=== PATIENT | male | born 1940 | race Caucasian/White ===

== ENCOUNTER → 2017-09-30 16:52 | Outpatient (REF) | payer MEDICARE, OTHER, SELFPAY ==
[2017-09-30 20:12] LABS: HCT 48.3 % (40.0-50.0); HGB 16.3 g/dL (13.5-17.5); Mean Corp. HGB Concentration 33.7 g/dL (32.0-36.0); Mean Corpuscular Hemoglobin 31.3 pg (27.0-33.0); Mean Corpuscular Volume 92.7 fL (80-95); Mean Platelet Volume 11.3 fL (8.0-11.0); Platelet Count 173 x1000/uL (130-400); RBC 5.21 m/cumm (4.50-6.00); RBC Distribution Width 13.6 % (11.8-14.1)
[2017-09-30 20:50] LABS: Anion Gap 9.6 mmol/L (3-11); BUN 20 mg/dL (7-18); CO2 26.4 mmol/L (21.0-32.0); CREATININE 1.09 mg/dL (0.70-1.30); Calcium 8.3 mg/dL (8.5-10.1); Chloride 106 mmol/L (98-107); Glucose 80 mg/dL (70-100); Potassium 4.2 mmol/L (3.5-5.1); Sodium 142 mmol/L (136-145); TSH 1.36 uIU/mL (0.358-3.74)
== END ==
LOC: NCHCN 16:52
PROVIDERS: PCP Physician Assistant; Visit Provider Physician Assistant Medical
DX: I10 Essential (primary) hypertension (principal); R53.83 Other fatigue
CPT/HCPCS: 80048; 85027; 84443

== ENCOUNTER 2017-12-25 13:50 | Outpatient (REF) | payer MEDICARE, OTHER, SELFPAY ==
[2017-12-25 20:49] LABS: HCT 48.2 % (40.0-50.0); HGB 16.7 g/dL (13.5-17.5); Mean Corp. HGB Concentration 34.6 g/dL (32.0-36.0); Mean Corpuscular Hemoglobin 31.8 pg (27.0-33.0); Mean Corpuscular Volume 91.8 fL (80-95); Mean Platelet Volume 11.2 fL (8.0-11.0); Platelet Count 184 x1000/uL (130-400); RBC 5.25 m/cumm (4.50-6.00); RBC Distribution Width 12.9 % (11.8-14.1); White Blood Cell Count 6.07 k/cumm (4.4-10.8)
[2017-12-25 21:05] LABS: ALT 24 U/L (12-78); AST 19 U/L (15-37); Albumin 3.7 g/dL (3.4-5.0); Alkaline Phosphatase 74 U/L (46-116); Anion Gap 7.6 mmol/L (3-11); BUN 21 mg/dL (7-18); Bilirubin, Total 1.6 mg/dL (0.2-1.0); CO2 27.4 mmol/L (21.0-32.0); CREATININE 0.82 mg/dL (0.70-1.30); Calcium 8.8 mg/dL (8.5-10.1); Chloride 104 mmol/L (98-107); Glucose 83 mg/dL (70-100); Potassium 4.3 mmol/L (3.5-5.1); Sodium 139 mmol/L (136-145); Total Protein 6.5 g/dL (6.4-8.2)
[2017-12-25 21:07] LABS: Bilirubin Negative (Negative); Blood Negative (Negative); Clarity Sl Cloudy; Glucose Negative (Negative); Ketones Trace mg/dL (Negative); Leukocyte Esterase Negative (Negative); Nitrite Negative (Negative); Specific Gravity >= 1.030 (1.005-1.025); Urobilinogen 0.2 EU/dL (Up TO 0.2); pH 5.5 (5-8)
[2017-12-25 21:12] LABS: INR 1.1 (1.0-3.5)
== END 2017-12-25 14:10 ==
LOC: NCHCN 13:50
PROVIDERS: PCP Physician Assistant; Visit Provider Physician Assistant Medical
DX: I10 Essential (primary) hypertension (principal); Z01.818 Encounter for other preprocedural examination
CPT/HCPCS: 80053; 85027; 81003; 85610

== ENCOUNTER 2018-01-03 10:31 | Outpatient (REF) | payer MEDICARE, OTHER, SELFPAY ==
[2018-01-03 19:03] LABS: Bilirubin, Direct 0.33 mg/dL (0.00-0.20)
== END 2018-01-03 10:51 ==
LOC: NCHCN 10:31
PROVIDERS: PCP Physician Assistant; Visit Provider Physician Assistant Medical
DX: E80.7 Disorder of bilirubin metabolism, unspecified (principal); I10 Essential (primary) hypertension
CPT/HCPCS: 82248

== ENCOUNTER 2019-11-23 14:55 | Outpatient (REF) | payer MEDICARE, OTHER, SELFPAY ==
[2019-11-23 20:06] LABS: Anion Gap 10.4 mmol/L (3-11); BUN 22 mg/dL (7-18); CO2 25.6 mmol/L (21.0-32.0); Calcium 8.7 mg/dL (8.5-10.1); Calculated LDL 110 mg/dL (<100); Chloride 106 mmol/L (98-107); Cholesterol 198 mg/dL (<200); Glucose 77 mg/dL (74-106); HDL Cholesterol 77 mg/dL (40-60); Potassium 4.4 mmol/L (3.5-5.1); Sodium 142 mmol/L (136-145); Triglyceride 56 mg/dL (<150)
== END 2019-11-23 15:15 ==
LOC: NCHCN 14:55
PROVIDERS: PCP Physician Assistant; Visit Provider Nurse Practitioner Family
DX: I10 Essential (primary) hypertension (principal)
CPT/HCPCS: 80048; 80061

== ENCOUNTER 2019-12-29 20:04 | Outpatient (REF) | payer MEDICARE, OTHER, SELFPAY ==
[2020-01-02 03:52] LABS: Patient Race White; SARS-CoV-2 RNA Undetected (Undetected); SARS-CoV-2 Specimen Source Nasal
== END 2019-12-29 20:24 ==
LOC: NCHCN 20:04
PROVIDERS: PCP Physician Assistant; Visit Provider Nurse Practitioner Family
DX: Z11.59 Encounter for screening for other viral diseases (principal)
CPT/HCPCS: U0003

== ENCOUNTER 2020-04-27 18:07 | Outpatient (REF) | payer MEDICARE, OTHER, SELFPAY ==
[2020-04-29 13:08] LABS: COVID-19 RT-PCR UVMMC Result Negative (Negative)
== END 2020-04-27 18:08 | disposition home or self-care (01) ==
LOC: NCHCN 18:07
PROVIDERS: PCP Physician Assistant; Visit Provider Physician Assistant
DX: Z20.822 Contact with and (suspected) exposure to COVID-19 (principal); R09.81 Nasal congestion
CPT/HCPCS: U0003

== ENCOUNTER 2021-04-25 13:33 | Outpatient (CLI) | payer MEDICARE, OTHER, SELFPAY ==
--- NOTE | 2021-04-25 13:00 | DI.RAD_ITS ---
Exam(s) XR SHOULDER RT COMPLETE 2+V EXAM: XR SHOULDER RT COMPLETE 2+V CLINICAL HISTORY: right shoulder pain. TECHNIQUE: 2D digital imaging was performed. Two views. COMPARISON: No exams were available for comparison FINDINGS: BONES: No acute fracture is present. No bony destructive lesion is seen. JOINTS: No dislocation present. Spurring at AC joint and tip of the acromion. Spurring and inferior glenoid. SOFT TISSUE: Normal. IMPRESSION: Czkc-hy-agvdsoac degenerative changes. DATA REPOSITORY: RADIATION DOSE DELIVERED:
--- OUTSIDE RECORDS SUMMARY | 2021-04-25 13:35 | XMS_ITS | Encounter Summary ---
:1940 Author Care Team Providers Name Role Phone Stoney Atkinson MD Primary Care Provider [phone] Edi Yusuf General Surgeon [phone] Jacek Barcenas MD Urologist [phone] Zachery Stafford MD Neurologist [phone] Reason for Visit hernia Self referral for right inguinal hernia Assessment and Plan Assessment Note 80-year-old man with a primary, red ucible umbilical hernia that is symptomatic and I recommend laparoscopic repair of this. Separately, he has a recurrent, symptomatic right groin hernia. I recomme nd a repeat repair but posteriorly via l aparoscopic approach. He is at very high risk for having a left?sided inguinal hernia as well. I will inspect the pelvis laparoscopically at the time of ac rgery and if there is one present I will fix that one as well. If 1 is not present, we will not fix it. I did discuss with the patient of the ve ry real possibility of chronic groin pain after surgery. This is especially risky because he is having groin pain already and he has already had surgery done once . What is good news is that after his fi rst surgery he had many years of no pain and was very happy. I quoted him that the risk for chronic groin pain after surgery is probably 1 or 2%. Since it is limiting his activity and hi s lifestyle, he agrees with all the potential risks but also with the indications and the goals of surgery and wishes to proceed. Plan: Laparoscopic umbilical as well as laparoscopic recurrent right inguinal hernia repair. 25 minutes spent on this consultation an d visit. 1. Pre-surgery testing ? unlisted lab - EKG done by lab Discussion Note: None recorded.Patient educational handouts: No information available. Plan of Care Reminders Provider Appointments Return to on or around [facility] Office 08/01/2021 [facility] Unlisted 02/07/2021 [facility] Lab (Internal) Referral None ? ? recorded. Procedures None ? ? recorded. Surgeries None ? ? recorded. Imaging None ? ? recorded. Medications Name Start Date ? ? Curcumin ? 3 capsules by mouth once a day cyclobenzaprine 10 mg tablet ? Take 1 tablet 3 times a day by oral route as needed. fexofenadine 180 mg tablet ? Take 1 tablet every day by oral route as needed. Fish Oil 1,000 mg (120 mg-180 mg) capsule ? Take 1 capsule every day by oral route. ibuprofen 200 mg tablet ? Take 2 tablets twice a day by oral route. lisinopril 10 mg tablet 01/20/2018 Take 1 tablet every day by oral route. phenazopyridine 95 mg tablet ? 2 tabs now red yeast rice 600 mg capsule ? Take 2 capsules every day by oral route. saw palmetto 500 mg capsule ? Take 1 capsule every day by oral route. Tylenol Extra Strength 500 mg tablet ? Take 1000 mg every day by oral route. Vitamin C 500 mg capsule,extended release ? Take 2 capsules every day by oral route. Notes: Prostate X 258mg QD Chaga (mushroom) 4 TBSP daily Medications Administered None recorded. Vitals Height Weight BMI Blood Pressure 5 ft 4.5 in 164 lbs 16 oz 27.9 kg/m2 138/82 mm[Hg] Results Lab Results None recorded. Allergies Code Code System Name Reaction Severity Onset Adhesive Tape Other Mild ? 84171 RxNorm Azithromycin Nausea ? ? Penicillins Nausea ? ? 101467 RxNorm Scallops ? ? ? Problems Name Status Onset Date Source ? 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 Hypertensive Disorder Active 07/31/2018 ? Posterior Rhinorrhea Active 07/31/2018 ? Disorder of Gallbladder Active 07/31/2018 ? Osteoarthritis of Knee Active 07/31/2018 ? Low Back Pain Active 07/31/2018 ? Jaundice Active 07/31/2018 ? Knee Pain Active 07/31/2018 ? Hearing Loss Active 11/03/2019 ? Polyp of Colon Active ? History Unilateral Inguinal Hernia Active ? Histo ry Diverticula of Intestine Active ? History Melena Active ? History Tremor Active ? History Pain of Left Shoulder Joint Active ? 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 History Procedures Date Name Performed by ? 04/20/2021 Colonoscopy Information not kiran strong Notes: severe left sided diverticulos is, grade 1 internal hemorrhoids 02/15/2021 Laparoscopic Ventral Hernia Repair Infor mation not available (Surg) 01/20/2018 Egd Information not avai lable Notes: diverticulosis of intesting, chronic duodenitis; 02/02/2014 slight schatzki ring, mild duodenitis 01/20/2018 Colonoscopy Information not avai lable Notes: diverticulosis of intestine, internal hemorrhoids; 02/02/2014 small ascending colon polyp, sigmoid diverticular disease; 04/05/2003 melanosis coli with sigmoid diverticular disease, no evidence of polyps 10/07/2015 Hernia Repair Information not avai lable Notes: right 02/11/2011 Wrist Surgery Information not avai lable Notes: RIGHT WRIST FUSION--HAS DANIELLA RE 02/11/2010 Carpal Tunnel Surgery Information not av ailable Notes: right 02/11/2009 Ankle Surgery Information not avai lable Notes: RIGHT ankle fusion--has daniella re 07/21/2008 Cystourethroscopy Rigid Information not available Notes: refractory right mid ureteral calculus ? Arthroplasty of Knee Information not seble ilable Notes: pt has had two left TKA Notes: Right ankle fusion right wrist fusion five previously fractured vetebrae Vaccine List Vaccine Type COVID-19, mRNA, LNP-S, PF, 30 mcg/0.3 mL dose (Valopaa) 03/18/2020 04/06/2020 02/02/2021 Notes: Influenza vaccine Social History Tobacco Smoking Status Never Smoker Any signs of neglect or no signs of neglect or abuse abuse? noted How many children do you 2 have? Marital status Have you used IV drugs? N What is your code status? 0 Suspected/Known Abuse Or No Neglect? How much tobacco do you chew? none What was the date of your 08/06/2018 most recent tobacco screening? Do you have an advanced N directive? Do you feel safe at home? Y Is blood transfusion Y acceptable in an emergency? Do you use any illicit or N recreational drugs? Former Occupation construction, heavy equipment operation, business population health manager Which of your hands is Right dominant? What is your level of alcohol Occasional consumption? Did the fall result in an Y Notes: prev ious injuried injury? unable answer at thi s time Screened for Covid-19 Y Notes: pt repor ts using mask in public at al l times, denies sx of illness (09/30/19) Do you or have you ever used N any other forms of tobacco or nicotine? What is your level of None caffeine consumption? 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 ladder, reports conc ussion Family History Relation Problem Onset Age of Age Notes Unspecified Relation Malignant tumor of (No N/A ( No Notes) colon Information) Functional Status Unknown. Past Encounters 02/07/2021 Pre-surgery Testing Edi Yusuf MD: [address] [place] [address], Ph. History of Present Illness Note: <div>80-year-old man had a Right inguinal hernia repair done 5 years ago.</div><div>
</div><div>Prior to that hernia repair he was having significant groin pain. The hernia repair fix that groin pain and he did well for many years afterwards. Unfortunately, the pain has come back in the last few months. He feels like his hernia is back just like it was 5 years ago.</div><div>
</div><div>He also has a bellybutton hernia thathas been bothering him for a number of years. It is getting worse and also starting to hurt.</div><div>
</div><div>He denies left?sided groin pain or bulging.< /div>Review of Systems: ROS as noted in the HPI Review of Systems None recorded. Physical Exam ? Notes: <div>General: Nontoxic and c omfortable

Neuro: Alert and oriented x3

Psych: Appropri ate mood and affect, good insight and understanding into condition

Abdomen: Soft, nontender nondistended. He has a soft and reducible umbilical hernia. His bilateral groins are examined. The right side is tender at the level of the external ring. There is no significant bulge. The le ft side is not tender.</div>
--- OUTSIDE RECORDS SUMMARY | 2021-04-25 13:35 | XMS_ITS ---
:1940 Author Care Team Providers Name Role Phone ORLANDO SOMERS General Surgeon [phone] JANET ARENAS MD Primary Care Provider [phone] JIMI BARCENAS MD Urologist [phone] EVANGELISTA BARAJAS MD Neurologist [phone] Allergies Code Code System Name Reaction Severity Status Onset Adhesive Tape Other Mild Active ? 19136 RxNorm Azithromycin Nausea ? Active ? Penicillins Nausea ? Active ? 446207 RxNorm Scallops ? ? Active ? Medications Name Status Start Date Stop Date ? ? Bactrim DS 800 mg-160 mg tablet Completed ? 01/20/2018 Take 1 tablet every 12 hours by oral route for 7 days. ciprofloxacin 250 mg tablet Completed ? 01/12 2 tabs now Curcumin Active ? Not available 3 capsules by mouth once a day cyclobenzaprine 10 mg tablet Active ? Not available Take 1 tablet 3 times a day by oral route as needed. Dilaudid 2 mg tablet Completed ? 03/07/2021 Take 1 tablet every 4-6 hours by oral route as needed for 2 day s. docusate sodium 100 mg capsule Completed 01/20/2018 0 08/06/2018 Take 1 capsule twice a day by oral route. Eliquis 2.5 mg tablet Completed 01/20/2018 07/31/2018 Take 1 tablet every 12 hours by oral route for 14 days. fexofenadine 180 mg tablet Active ? Not a vailable Take 1 tablet every day by oral route as needed. Fish Oil 1,000 mg (120 mg-180 mg) capsule Active ? Not available Take 1 capsule every day by oral route. Flagyl 500 mg tablet Completed ? 01/20/2018 Take 1 tablet every 8 hours by oral route for 7 days. fluticasone propionate 50 mcg/actuation nasal spray,suspension C ompleted ? 08/06/2018 [place] 2 sprays every day by intranasal route. glycerin (adult) rectal suppository Completed ? 01/20/2018 Insert 1 suppository every day by rectal route for 3 days. ibuprofen 200 mg tablet Active ? Not avai lable Take 2 tablets twice a day by oral route. lisinopril 10 mg tablet Active 01/20/2018 Not avai lable Take 1 tablet every day by oral route. omeprazole 40 mg capsule,delayed release Completed 018 08/06/2018 Take 1 capsule every day by oral route. phenazopyridine 95 mg tablet Active ? Not available 2 tabs now prednisone 10 mg tablet Completed ? 11/04/19 Take 6 tablets every day by oral route for 3 days. Take 6 tabs daily for 3 days, then 5 ti mes daily for 3 days and 4 times daily for 3 days then 3 tabs daily for 3 days then 2 tabs daily for 3 days then 1 tab daily for 3 days. red yeast rice 600 mg capsule Active ? No t available Take 2 capsules every day by oral route. saw palmetto 500 mg capsule Active ? Not available Take 1 capsule every day by oral route. Tylenol Extra Strength 500 mg tablet Active ? Not available Take 1000 mg every day by oral route. Vitamin C 500 mg capsule,extended release Active ? Not available Take 2 capsules every day by oral route. Notes: Prostate X 258mg QD Chaga (mushroom) 4 TBSP daily Problems Name Status Onset Date Source ? [...] Active ? History Melena Active ? History Pain in Limb Unknown ? History Tremor Active ? History Pain of Left Shoulder Joint Active ? 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 History Procedure by Method Unknown ? History Procedures Date Name Performed by ? 04/20/2021 Colonoscopy Information not avai lable Notes: severe left sided diverticulos is, grade [...] not avai lable Notes: RIGHT WRIST FUSION--HAS HARDWA RE 02/11/2010 Carpal Tunnel Surgery Information not av ailable Notes: right 02/11/2009 Ankle Surgery Information not avai lable Notes: RIGHT ankle fusion--has hardwa re 07/21/2008 Cystourethroscopy Rigid Information not available Notes: refractory right mid ureteral calculus ? Arthroplasty of Knee Information not seble ilable Notes: pt has had two left TKA 02/10/2019 US, Abdomen, Limited [facility] (Internal) [address] [place] [address] (Work Place) 07/14/2019 US, Abdomen, Limited [facility] (Internal) [address] [place] [address] (Work Place) 09/30/2019 CT, Abdomen + Pelvis, W/o Contrast [facility] Radiology (Internal) [address] [place] [address] (Work Place) 06/13/2020 US, Abdomen, Limited [facility] (Internal) [address] [place] [address] (Work Place) Notes: Right ankle fusion right wrist fusion five previously fractured vetebrae Results Lab Results Date Name Specimen Result Interpretation Description Value Range Status Address ? 02/15/2021 Pathology Study TISS ? Report (see below) ? Final [facility] L ab (Internal) : [address] 11/04/2019 Cytology, TISS ? Report (see below) ? Ashley Aguayo Non-gynecologic C ountry al, Unspecified H ospital Lab Specimen (Interna l): [address] 11/04/2019 Urinalysis, Urine ? Color Carol ? ? P _urology: Dipstick, clean [address], [place] ? ? Urine ? Appearance Clear ? ? P_uro logy: clean [address] [facility] [address], [place] ? ? Urine ? Glucose Normal ? ? P_urolog y: clean [address] [facility] [address], [place] ? ? Urine ? Bilirubin Negative ? ? P_ur ology: clean [address] [facility] [address], [place] ? ? Urine ? Ketones Negative ? ? P_urol ogy: clean [address], [place] ? ? Urine ? Specific 1.030 ? ? P_urolo gy: clean Allen [address] [facility] [address], [place] ? ? Urine ? Blood Negative ? ? P_urolog y: clean [address] [facility] [address], [place] ? ? Urine ? Ph 5.5 ? ? P_urology: clean 41 Medical [employer] [facility], [place] ? ? Urine ? Protein Negative ? ? P_urol ogy: clean 41 Medical [employer] [facility], [place] ? ? Urine ? Urobilinog 0.2 ? ? P_uro logy: clean en [address] Medical [employer] [facility], [place] ? ? Urine ? Nitrite negative ? ? P_urol ogy: clean 41 Medical [employer] [facility], [place] ? ? Urine ? Leukocyte Negative ? ? P_ur ology: clean Esterase 41 Medic al [employer] [facility] 09/[facility]/2019 Bladder Scan ? Date and 09/30/2019 ? ? P_urology: (PROC) Time 8:25am [address] [facility] ? ? ? Amount in 32ml ? ? P_urol ogy: Bladder 41 [facility] [facility] 09/30/2019 Urinalysis, Urine ? Color Yellow ? ? P _urology: Dipstick, clean [address] Medi falguni Reflex Micro catch [address], [place] ? ? Urine ? Appearance Clear ? ? P_uro logy: clean 41 [address] catch [facility], [place] ? ? Urine ? Glucose Normal ? ? P_urolog y: clean [address] [facility], [place] ? ? Urine ? Bilirubin Negative ? ? P_ur ology: clean 41 Medical [employer] [facility], [place] ? ? Urine ? Ketones Negative ? ? P_urol ogy: clean 41 Medical [employer] [facility], [place] ? ? Urine ? Specific 1.030 ? ? P_urolo gy: clean Allen [address], [place] ? ? Urine ? Blood Trace ? ? P_urology: clean [address], [place] ? ? Urine ? Ph 6.0 ? ? P_urology: clean [address], [place] ? ? Urine ? Protein Negative ? ? P_urol ogy: clean [address], [place] ? ? Urine ? Urobilinog 0.2 ? ? P_uro logy: clean en [address], [place] ? ? Urine ? Nitrite negative ? ? P_urol ogy: clean [address], [place] ? ? Urine ? Leukocyte Negative ? ? P_ur ology: clean Esterase 41 Medic al [email or web address] 11/10/2018 Borrelia S - Lyme negative ? Final No rth [place]dorferi Ab, Antibody [facility] Immunoassay, (Int ernal): Serum [address] 11/10/2018 TSH, Serum or S - Tsh 1.62 0.47-4 [facility] Plasma u[IU]/mL .68 [facility] u[IU]/ Hospital L ab mL (Internal) : [address] 11/10/2018 Glucose, S - Fbs 92 mg/dL 74-106 Final No rth Fasting, mg/dL Country Serum/plasma Hosp ital Lab (Internal) : [address] 11/10/2018 CBC W/ Auto BLD - Wbc 5.7 10*3/uL 5.0-10 Fin al [place] Diff .0 [facility] 10*3/u Hospital L ab L (Internal) : [address] ? ? BLD - Rbc 5.63 4.60-6 [facility] 10*6/uL .00 [facility] 10*6/u Hospital L ab L (Internal) : [address] ? ? BLD - Hgb 17.6 g/dL 14.0-1 Final [place] 8.0 [facility] g/dL Hospital L ab (Internal) : [address] ? ? BLD High Hct 53.0 % 41.0-5 Final [place] 1.0 % [facility] L [facility] (Internal) : [address] ? ? BLD - Mcv 94.1 fL 80.0-9 Final [facility] 6.0 fL [facility] L [facility] (Internal) : [address] ? ? BLD - Mch 31.3 pg 26.0-3 Final [facility] 2.0 pg [facility] L [facility] (Internal) : [address] ? ? BLD - Mchc 33.2 g/dL 31.0-3 Final [place] 5.0 [facility] g/dL Hospital L ab (Internal) : [address] ? ? BLD - Rdw 12.7 % 11.5-1 Final [facility] 4.5 % [facility] L [facility] (Internal) : [address] ? ? BLD - Plt 195 10*3/uL 130-45 Final [place] 0 [facility] 10*3/u Hospital L ab L (Internal) : [address] ? ? BLD - Anc 3.74 ? Final [facility] 10*3/uL [facility] (Internal) : [address] ? ? BLD - Neutro 65.3 % 40.0-7 Final [facility] 5.0 % [facility] (Internal) : [address] ? ? BLD Low Lymph 19.7 % 20.0-5 Final [facility] 0.0 % [facility] (Internal) : [address] ? ? BLD - [place] 9.8 % 2.0-10 Final [facility] .0 % [facility] (Internal[facility] : [address] ? ? BLD - Eos 4.0 % 1.0-6. Final [place] 0 % [facility] (Internal) : [address] ? ? BLD - Baso 0.9 % 0.0-1. Final [facility] 0 % [facility] (Internal) : [address] ? ? BLD - Ig 0.3 % 0.0-0. Final [facility] 9 % [facility] (Internal) : [address] 11/10/2018 ALT (Alanine S - Alt (Sgpt) 21 U/L 21-72 Fi nal [place] Aminotransferas U/L C ountry e), Serum or Hosp ital Lab Plasma (Internal) : [address] 11/10/2018 AST/SGOT S - Ast (Sgot) 28 U/L 17-59 Final [place] (Aspartate U/L Countr y Aminotransferas H ospital Lab e), Serum or (Int ernal): Plasma [address] 11/10/2018 Lipid Panel, S High Chol 225 mg/dL 50-200 Ashley l [facility] Serum mg/dL [facility] L [facility] (Internal) : [address] ? ? S - Trig 43 mg/dL 10-150 Final [place] mg/dL [facility] Hospital L ab (Internal) : [address] ? ? S High Hdl 68 mg/dL 40-60 Final [place] mg/dL [facility] Hospital L ab (Internal) : [address] ? ? S High Ldl 148 mg/dL 0-130 Final [place] mg/dL [facility] Hospital L ab (Internal) : [address] 10/06/2018 PSA, Serum or S - PSA, Total 1.4 NG/mL 0.0-4 . Final [place] Plasma 0 [facility] NG/mL Hospital L ab (Internal) : [address] 01/27/2018 CBC W/ Auto BLD - Wbc 9.6 10*3/uL 5.0-10 Fin al [place] Diff .0 [facility] 10*3/u Hospital L ab L (Internal) : [address] ? ? BLD Low Rbc 4.44 4.60-6 Final [place] 10*6/uL .00 [facility] 10*6/u Hospital L ab L (Internal) : [address] ? ? BLD Low Hgb 13.9 g/dL 14.0-1 Final [place] 8.0 [facility] g/dL Hospital L ab (Internal) : [address] ? ? BLD - Hct 41.6 % 41.0-5 Final [place] 1.0 % [facility] L [facility] (Internal) : [address] ? ? BLD - Mcv 93.7 fL 80.0-9 Final [place] 6.0 fL [facility] (Internal) : [address] ? ? BLD - Mch 31.3 pg 26.0-3 Final [facility] 2.0 pg [facility] L [facility] (Internal) : [address] ? ? BLD - Mchc 33.4 g/dL 31.0-3 Final North 5.0 [facility] g/dL Hospital L ab (Internal) : [address] ? ? BLD - Rdw 12.5 % 11.5-1 Final [facility] 4.5 % [facility] L [facility] (Internal) : [address] ? ? BLD - Plt 446 10*3/uL 130-45 Final [place] 0 [facility] 10*3/u Hospital L ab L (Internal) : [address] ? ? BLD - Anc 6.92 ? Final [facility] 10*3/uL [facility] L [facility] (Internal) : [address] ? ? BLD - Neutro 72.4 % 40.0-7 Final [facility] 5.0 % [facility] (Internal) : [address] ? ? BLD Low Lymph 15.4 % 20.0-5 Final [place] 0.0 % [facility] (Internal) : [address] ? ? BLD - [place] 9.8 % 2.0-10 Final North .0 % [facility] (Internal) : [address] ? ? BLD - Eos 1.5 % 1.0-6. Final [place] 0 % [facility] (Internal) : [address] ? ? BLD - Baso 0.5 % 0.0-1. Final [place] 0 % [facility] (Internal) : [address] ? ? BLD - Ig 0.4 % 0.0-0. Final [facility] 9 % [facility] (Internal) : [address] 01/20/2018 Cbc BLD - Wbc 6.3 10*3/uL 5.0-10 Final N orth .0 [facility] 10*3/u Hospital L ab L (Internal) : [address] ? ? BLD Low Rbc 4.11 4.60-6 Final North 10*6/uL .00 [facility] 10*6/u Hospital L ab L (Internal) : [address] ? ? BLD Low Hgb 12.9 g/dL 14.0-1 Final North 8.0 [facility] g/dL Hospital L ab (Internal) : [address] ? ? BLD Low Hct 38.2 % 41.0-5 Final [facility] 1.0 % [facility] (Internal) : [address] nadine ? ? BLD - Mcv 92.9 fL 80.0-9 Final [facility] 6.0 fL [facility] (Internal) : [address] nadine ? ? BLD - Mch 31.4 pg 26.0-3 Final [facility] 2.0 pg [facility] L [facility] (Internal) : [address] ? ? BLD - Mchc 33.8 g/dL 31.0-3 Final North 5.0 [facility] g/dL Hospital L ab (Internal) : [address] nadine ? ? BLD - Rdw 12.5 % 11.5-1 Final [place] 4.5 % [facility] L [facility] (Internal) : [address] ? ? BLD - Plt 223 10*3/uL 130-45 Final North 0 [facility] 10*3/u Hospital L ab L (Internal) : [address] nadine ? ? BLD - Anc 4.06 ? Final North 10*3/uL [facility] (Internal) : [address] 01/20/2018 BMP, Serum or S - g/r 98 mg/dL 74-106 Ashley l [facility] Plasma mg/dL [facility] (Internal) : [address] ? ? S - Bun 18 mg/dL 9-20 Final [facility] mg/dL [facility] (Internal) : [address] ? ? S - Crea 0.90 mg/dL 0.66-1 Final North .25 [facility] mg/dL Hospital L ab (Internal) : [address] ? ? S - Ca 8.4 mg/dL 8.4-10 Final North .2 [facility] mg/dL Hospital L ab (Internal) : [address] ? ? S Low Na 131 mmol/L 137-14 Final [place] 5 [facility] mmol/L Hospital L ab (Internal) : [address] ? ? S - K 4.4 mmol/L 3.5-5. Final [place] 1 [facility] mmol/L Hospital L ab (Internal) : [address] ? ? S - Cl 101 mmol/L 98-107 Final [place] mmol/L [facility] L [facility] (Internal) : [address] ? ? S - Tco2 27.0 mmol/L 22.0-3 Final [place] 0.0 [facility] mmol/L Hospital L ab (Internal) : [address] 01/20/2018 Urease, TISS - Final microbiolog ? Final [place] Qualitative, [facility] : [address] 01/20/2018 Pathology Study TISS - Report results ? Fi nal [facility] below [facility] L [facility] (Internal) : [address] 01/19/2018 Cbc BLD - Wbc 6.8 10*3/uL 5.0-10 Final N orth .0 [facility] 10*3/u Hospital L ab L (Internal) : [address] ? ? BLD Low Rbc 3.97 4.60-6 Final [place] 10*6/uL .00 [facility] 10*6/u Hospital L ab L (Internal) : [address] ? ? BLD Low Hgb 12.5 g/dL 14.0-1 Final [place] 8.0 [facility] g/dL Hospital L ab (Internal) : [address] ? ? BLD Low Hct 37.6 % 41.0-5 Final [place] 1.0 % [facility] L [facility] (Internal) : [address] ? ? BLD - Mcv 94.7 fL 80.0-9 Final [place] 6.0 fL [facility] (Internal) : [address] ? ? BLD - Mch 31.5 pg 26.0-3 Final [place] 2.0 pg [facility] L [facility] (Internal) : [address] ? ? BLD - Mchc 33.2 g/dL 31.0-3 Final [place] 5.0 [facility] g/dL Hospital L ab (Internal) : [address] ? ? BLD - Rdw 12.5 % 11.5-1 Final North 4.5 % [facility] L [facility] (Internal) : [address] ? ? BLD - Plt 206 10*3/uL 130-45 Final North 0 [facility] 10*3/u Hospital L ab L (Internal) : [address] ? ? BLD - Anc 4.61 ? Final North 10*3/uL [facility] (Internal) : [address] 01/19/2018 BMP, Serum or S - g/r 104 mg/dL 74-106 Fin al North Plasma mg/dL [facility] (Internal) : [address] ? ? S - Bun 16 mg/dL 9-20 Final [facility] mg/dL [facility] (Internal) : [address] ? ? S - Crea 1.00 mg/dL 0.66-1 Final North .25 [facility] mg/dL Hospital L ab (Internal) : [address] ? ? S - Ca 9.0 mg/dL 8.4-10 Final North .2 [facility] mg/dL Hospital L ab (Internal) : [address] ? ? S Low Na 134 mmol/L 137-14 Final [place] 5 [facility] mmol/L Hospital L ab (Internal) : [address] ? ? S - K 4.3 mmol/L 3.5-5. Final [place] 1 [facility] mmol/L Hospital L ab (Internal) : [address] ? ? S - Cl 98 mmol/L 98-107 Final [place] mmol/L [facility] (Internal) : [address] ? ? S - Tco2 28.0 mmol/L 22.0-3 Final North 0.0 [facility] mmol/L Hospital L ab (Internal) : [address] 01/19/2018 Cbc BLD - Wbc 7.4 10*3/uL 5.0-10 Final N orth .0 [facility] 10*3/u Hospital L ab L (Internal) : [address] ? ? BLD Low Rbc 4.56 4.60-6 Final North 10*6/uL .00 [facility] 10*6/u Hospital L ab L (Internal) : [address] ? ? BLD - Hgb 14.2 g/dL 14.0-1 Final North 8.0 [facility] g/dL Hospital L ab (Internal) : [address] ? ? BLD - Hct 43.4 % 41.0-5 Final North 1.0 % [facility] (Internal) : [address] ? ? BLD - Mcv 95.2 fL 80.0-9 Final [facility] 6.0 fL [facility] (Internal) : [address] ? ? BLD - Mch 31.1 pg 26.0-3 Final [facility] 2.0 pg [facility] (Internal) : [address] ? ? BLD - Mchc 32.7 g/dL 31.0-3 Final [place] 5.0 [facility] g/dL Hospital L ab (Internal) : [address] ? ? BLD - Rdw 12.8 % 11.5-1 Final [place] 4.5 % [facility] L [facility] (Internal) : [address] ? ? BLD - Plt 253 10*3/uL 130-45 Final North 0 [facility] 10*3/u Hospital L ab L (Internal) : [address] ? ? BLD - Anc 5.28 ? Final [place] 10*3/uL [facility] (Internal) : [address] 01/18/2018 CBC W/ Auto BLD - Wbc 7.2 10*3/uL 5.0-10 Fin al [place] Diff .0 [facility] 10*3/u Hospital L ab L (Internal) : [address] ? ? BLD Low Rbc 4.21 4.60-6 Final North 10*6/uL .00 [facility] 10*6/u Hospital L ab L (Internal) : [address] ? ? BLD Low Hgb 13.3 g/dL 14.0-1 Final [place] 8.0 Country g/dL Hospital L ab (Internal) : [address] ? ? BLD Low Hct 39.6 % 41.0-5 Final North 1.0 % [facility] L [facility] (Internal) : [address] ? ? BLD - Mcv 94.1 fL 80.0-9 Final [facility] 6.0 fL [facility] L [facility] (Internal) : [address] ? ? BLD - Mch 31.6 pg 26.0-3 Final North 2.0 pg [facility] L [facility] (Internal) : [address] ? ? BLD - Mchc 33.6 g/dL 31.0-3 Final North 5.0 Country g/dL Hospital L ab (Internal) : [address] ? ? BLD - Rdw 12.8 % 11.5-1 Final [facility] 4.5 % [facility] L [facility] (Internal) : [address] ? ? BLD - Plt 194 10*3/uL 130-45 Final North 0 [facility] 10*3/u Hospital L ab L (Internal) : [address] ? ? BLD - Anc 5.47 ? Final [facility] 10*3/uL [facility] L [facility] (Internal) : [address] ? ? BLD High Neutro 75.6 % 40.0-7 Final [facility] 5.0 % [facility] (Internal) : [address] ? ? BLD Low Lymph 13.0 % 20.0-5 Final [facility] 0.0 % [facility] (Internal) : [address] ? ? BLD - [place] 9.9 % 2.0-10 Final North .0 % [facility] L [facility] (Internal) : [address] ? ? BLD Low Eos 0.8 % 1.0-6. Final North 0 % [facility] (Internal) : [address] ? ? BLD - Baso 0.4 % 0.0-1. Final North 0 % [facility] (Internal) : [address] ? ? BLD - Ig 0.3 % 0.0-0. Final [facility] 9 % [facility] (Internal) : [address] 01/18/2018 CMP, Serum or S High g/r 117 mg/dL 74-106 Fin al [facility] Plasma mg/dL [facility] (Internal) : [address] ? ? S - Bun 16 mg/dL 9-20 Final [facility] mg/dL [facility] (Internal) : [address] ? ? S - Crea 1.00 mg/dL 0.66-1 Final North .25 [facility] mg/dL Hospital L ab (Internal) : [address] ? ? S - Ca 8.5 mg/dL 8.4-10 Final North .2 [facility] mg/dL Hospital L ab (Internal) : [address] ? ? S Low Na 133 mmol/L 137-14 Final North 5 [facility] mmol/L Hospital L ab (Internal) : [address] ? ? S - K 4.1 mmol/L 3.5-5. Final [place] 1 [facility] mmol/L Hospital L ab (Internal) : [address] ? ? S - Cl 101 mmol/L 98-107 Final [place] mmol/L [facility] Hospital L ab (Internal) : [address] ? ? S - Tco2 27.0 mmol/L 22.0-3 Final [place] 0.0 [facility] mmol/L Hospital L ab (Internal) : [address] ? ? S Low Tp 6.2 g/dL 6.3-8. Final North 2 g/dL [facility] (Internal) : [address] ? ? S Low Alb 3.4 g/dL 3.5-5. Final North 0 g/dL [facility] Hospital L ab (Internal) : [address] ? ? S High Tbil 1.9 mg/dL 0.2-1. Final North 3 [facility] mg/dL Hospital L ab (Internal) : [address] ? ? S - Alp 53 U/L 38-126 Final North U/L [facility] Hospital L ab (Internal) : [address] ? ? S - Alt (Sgpt) 26 U/L 21-72 Final [place] U/L [facility] Hospital L ab (Internal) : [address] ? ? S - Ast (Sgot) 31 U/L 17-59 Final North U/L [facility] Hospital L ab (Internal) : [address] 01/18/2018 Lipase, Serum S - Lip 72 U/L 23-300 Final [place] or Plasma U/L [facility] Hospital L ab (Internal) : [address] 01/18/2018 Partial BLD - APTT (Op) 25 s 22-35 Final N orth Thromboplastin s Co untry Time Hospital L ab (Internal) : [address] 01/18/2018 Prothrombin BLD - Pt 10.6 S 9.1-11 Final N orth Time .7 S [facility] Hospital L ab (Internal) : [address] ? ? BLD - Inr 1.0 ? Final [facility] Hospital L ab (Internal) : [address] 01/18/2018 Cbc BLD - Wbc 6.9 10*3/uL 5.0-10 Final N orth .0 [facility] 10*3/u Hospital L ab L (Internal) : [address] ? ? BLD Low Rbc 4.07 4.60-6 Final [place] 10*6/uL .00 [facility] 10*6/u Hospital L ab L (Internal) : [address] ? ? BLD Low Hgb 12.8 g/dL 14.0-1 Final [place] 8.0 Country g/dL Hospital L ab (Internal) : [address] ? ? BLD Low Hct 38.4 % 41.0-5 Final [place] 1.0 % [facility] Hospital L ab (Internal) : [address] ? ? BLD - Mcv 94.3 fL 80.0-9 Final [place] 6.0 fL [facility] Hospital L ab (Internal) : [address] ? ? BLD - Mch 31.4 pg 26.0-3 Final [place] 2.0 pg [facility] Hospital L ab (Internal) : [address] nadine ? ? BLD - Mchc 33.3 g/dL 31.0-3 Final [place] 5.0 Country g/dL Hospital L ab (Internal) : [address] nadine ? ? BLD - Rdw 12.8 % 11.5-1 Final [place] 4.5 % [facility] Hospital L [facility] (Internal) : [address] ? ? BLD - Plt 200 10*3/uL 130-45 Final [place] 0 [facility] 10*3/u Hospital L ab L (Internal) : [address] ? ? BLD - Anc 4.73 ? Final [place] 10*3/uL [facility] L [facility] (Internal) : [address] 01/18/2018 Cbc BLD - Wbc 6.9 10*3/uL 5.0-10 Final N orth .0 [facility] 10*3/u Hospital L ab L (Internal) : [address] ? ? BLD Low Rbc 3.99 4.60-6 Final [place] 10*6/uL .00 [facility] 10*6/u Hospital L ab L (Internal) : [address] ? ? BLD Low Hgb 12.5 g/dL 14.0-1 Final North 8.0 Country g/dL Hospital L ab (Internal) : [address] ? ? BLD Low Hct 38.1 % 41.0-5 Final North 1.0 % [facility] L [facility] (Internal) : [address] ? ? BLD - Mcv 95.5 fL 80.0-9 Final North 6.0 fL [facility] (Internal) : [address] ? ? BLD - Mch 31.3 pg 26.0-3 Final North 2.0 pg [facility] L [facility] (Internal) : [address] ? ? BLD - Mchc 32.8 g/dL 31.0-3 Final North 5.0 Country g/dL Hospital L ab (Internal) : [address] ? ? BLD - Rdw 12.7 % 11.5-1 Final [facility] 4.5 % [facility] Hospital L ab (Internal) : [address] ? ? BLD - Plt 195 10*3/uL 130-45 Final [place] 0 [facility] 10*3/u Hospital L ab L (Internal) : [address] ? ? BLD - Anc 4.72 ? Final North 10*3/uL [facility] Hospital L ab (Internal) : [address] [facility] 10/02/2017 PSA, Serum or S - PSA Scrn 1.2 NG/mL 0.0-4. Final [place] Plasma 0 Country NG/mL Hospital L ab (Internal) : [address] [facility] 11/20/2016 Influenza (A+B) NASAL ? Final microbiolog ? Final [place] Ag, Qual, y results Coun try Rapid, Nose Hospi sophia Lab (Internal) : [address] [facility] 08/30/2016 Venipuncture BLD ? Venpn* ? ? Final [facility] Hospital L ab (Internal) : [address] [facility] 08/30/2016 PSA, Serum or S ? PSA Scrn 1.1 NG/mL 0.0-4. Final [place] Plasma 0 Country NG/mL Hospital L ab (Internal) : [address] [facility] 05/28/2016 Urinalysis, UR ? UA-WBC 0-3 [hpf] 0-3 Ashley walker [place] Microscopic [hpf] Count Hospital L ab (Internal) : [address] t ? ? UR ABNORM UA-RBC 10-25 [hpf] 0-2 Final Nort h AL [hpf] [facility] Hospital L ab (Internal) : [address] t ? ? UR ? UA-bacteri rare [hpf] none Final N orth a seen Country [hpf] Hospital L ab (Internal) : [address] t ? ? UR ? UA-epithel none seen none Final No rth ial [hpf] seen Country [hpf] Hospital L ab (Internal) : [address] t ? ? UR ABNORM UA-mucus rare [hpf] none Final Nor th AL seen Country [hpf] Hospital L ab (Internal) : [address] [facility]2016 Urinalysis, UR ? UA-color yellow pale Final [place] Dipstick, yellow Country Reflex Micro Hosp ital Lab (Internal) : [address] t ? ? UR ? UA-appear clear clear Final [facility] L ab (Internal) : [address] t ? ? UR ? UA-spec 1.010 1.003- Final [place] Grav 1.035 [facility] L ab (Internal) : [address] t ? ? UR ? UA-pH 6.0 [pH] 4.6-8. Final [place] 0 [pH] [facility] Hospital L ab (Internal) : [address] t ? ? UR ? UA-leuk negative negati Final [facility] L ab (Internal) : [address] t ? ? UR ? UA-nitrite negative negati Final [facility] L ab (Internal) : [address] t ? ? UR ? UA-prot negative negati Final [facility] L ab (Internal) : [address] t ? ? UR ? UA-gluc negative negati Final [facility] L ab (Internal) : [address] t ? ? UR ? UA-ketone negative negati Final [facility] Hospital L ab (Internal) : [address] t ? ? UR ? UA-urobil normal normal Final [facility] L ab (Internal) : [address] t ? ? UR ? UA-bili negative negati Final [facility] L ab (Internal) : [address] t ? ? UR ABNORM UA-blood moderate negati Final [facility] Hospital L ab (Internal) : [address] 05/28/2016 CMP, Serum or S ? g/r 104 mg/dL 74-106 Fin [facility] Plasma mg/dL [facility] Hospital L ab (Internal) : [address] t ? ? S High Bun 23 mg/dL 9-20 Final [place] mg/dL [facility] Hospital L ab (Internal) : [address] t ? ? S ? Crea 1.00 mg/dL 0.66-1 Final [place] .25 Country mg/dL Hospital L ab (Internal) : [address] t ? ? S ? Ca 8.6 mg/dL 8.4-10 Final [place] .2 Country mg/dL Hospital L ab (Internal) : [address] t ? ? S ? Na 140 mmol/L 137-14 Final [place] 5 Country mmol/L Hospital L ab (Internal) : [address] t ? ? S ? K 3.7 mmol/L 3.5-5. Final [place] 1 Country mmol/L Hospital L ab (Internal) : [address] t ? ? S ? Cl 104 mmol/L 98-107 Final [place] mmol/L [facility] Hospital L ab (Internal) : [address] t ? ? S ? Tco2 25.0 mmol/L 22.0-3 Final [place] 0.0 Country mmol/L Hospital L ab (Internal) : [address] t ? ? S ? Tp 6.9 g/dL 6.3-8. Final [place] 2 g/dL [facility] Hospital L ab (Internal) : [address] t ? ? S ? Alb 4.0 g/dL 3.5-5. Final [place] 0 g/dL [facility] L ab (Internal) : [address] t ? ? S ? Tbil 1.3 mg/dL 0.2-1. Final [place] 3 Country mg/dL Hospital L ab (Internal) : [address] t ? ? S ? Alp 95 U/L 38-126 Final [place] U/L [facility] Hospital L ab (Internal) : [address] t ? ? S ? Alt (Sgpt) 32 U/L 21-72 Final [place] U/L [facility] L [facility] (Internal) : [address] t ? ? S ? Ast (Sgot) 28 U/L 17-59 Final [place] U/L [facility] Hospital L ab (Internal) : [address] 05/28/2016 CBC W/ Auto BLD ? Wbc 7.2 10*3/uL 5.0-10 Fin al North Diff .0 Country 10*3/u Hospital L ab L (Internal) : [address] t ? ? BLD ? Rbc 5.26 4.60-6 Final [place] 10*6/uL .00 Country 10*6/u Hospital L ab L (Internal) : [address] ? ? BLD ? Hgb 16.7 g/dL 14.0-1 Final [place] 8.0 Country g/dL Hospital L ab (Internal) : [address] ? ? BLD ? Hct 48.4 % 41.0-5 Final [place] 1.0 % [facility] Hospital L ab (Internal) : [address] [place] ? ? BLD ? Mcv 92.0 fL 80.0-9 Final [facility] 6.0 fL [facility] L ab (Internal) : [address] [place] [address] ? ? BLD ? Mch 31.7 pg 26.0-3 Final North 2.0 pg [facility] L ab (Internal) : [address] [place] ? ? BLD ? Mchc 34.5 g/dL 31.0-3 Final North 5.0 Country g/dL Hospital L ab (Internal) : [address] [place] [address] ? ? BLD ? Rdw 12.9 % 11.5-1 Final [facility] 4.5 % [facility] L [facility] (Internal) : [address] [place] [address] ? ? BLD ? Plt 210 10*3/uL 130-45 Final [place] 0 [facility] 10*3/u Hospital L ab L (Internal) : [address] [place] ? ? BLD ? Anc 4.77 ? Final [place] 10*3/uL [facility] L [facility] (Internal) : [address] [place] ? ? BLD ? Neutro 66.6 % 40.0-7 Final [facility] 5.0 % [facility] L [facility] (Internal) : [address] [place] ? ? BLD ? Lymph 20.0 % 20.0-5 Final [place] 0.0 % [facility] L [facility] (Internal) : [address] [place] ? ? BLD ? [place] 9.2 % 2.0-10 Final North .0 % [facility] L [facility] (Internal) : [address] [place] ? ? BLD ? Eos 3.2 % 1.0-6. Final [facility] 0 % [facility] L [facility] (Internal) : [address] [place] ? ? BLD ? Baso 0.7 % 0.0-1. Final [facility] 0 % [facility] L [facility] (Internal) : [address] [place] ? ? BLD ? Ig 0.3 % 0.0-0. Final North 9 % [facility] L ab (Internal) : [address] Past Encounters 03/07/2021 Orlando Somers MD: [address] [place] [address], Ph. 02/07/2021 Pre-surgery Testing Orlando Somers MD: [address] [place] [phone], Ph. 09/05/2020 Kel Barroso MD: [address] [place] [phone], Ph. 08/01/2020 Pain in Finger of Left Hand; Stiffness o f Joint of Left Hand; Muscle Weakness Laurel Finn, OT: [email or web address] [phone], Ph. 06/21/2020 Pain in Finger of Left Hand; Stiffness o f Joint of Left Hand; Muscle Weakness Laurel Finn, OT: [email or web address] [address], Ph. 06/16/2020 Pain in Finger of Left Hand; Stiffness o f Joint of Left Hand; Muscle Weakness Laurel Finn, OT: [facility], [address] [phone], Ph. 06/13/2020 Pain in Finger of Left Hand; Stiffness o f Joint of Left Hand; Muscle Weakness Laurel Finn, OT: [facility], [address] [address], Ph. 06/01/2020 Pain in Finger of Left Hand; Stiffness o f Joint of Left Hand; Muscle Weakness Laurel Finn, OT: [facility], [address] [address], Ph. 05/26/2020 Pain in Finger of Left Hand; Stiffness o f Joint of Left Hand; Muscle Weakness Laurel Finn, OT: [facility], [address] [address], Ph. 05/23/2020 Pain in Finger of Left Hand; Stiffness o f Joint of Left Hand; Muscle Weakness Laurel Finn, OT: [address], [place] [address], Ph. 05/17/2020 Pain in Finger of Left Hand; Stiffness o f Joint of Left Hand; Muscle Weakness Laurel Finn, OT: [address], [place] [address], Ph. 11/04/2019 Lower Urinary Tract Symptoms Due to Jason gn Prostatic Hypertrophy; Urgent Desire to Urinate; Increased Frequency of Urination; History of Calculus of Kidney; Incomplete Emptying of Bladder; Urinary Reten tion Due to Benign Prostatic Hypertrophy ; Microscopic Hematuria; Diverticulum of Bladder Jimi Barcenas MD: [address] [place] [phone], Ph. Social History Tobacco Smoking Status Never Smoker Vaccine List Vaccine Type COVID-19, mRNA, LNP-S, PF, 30 mcg/0.3 mL dose (Glowbl) 03/18/2020 04/06/2020 02/02/2021 Notes: Influenza vaccine Plan of Care Reminders Provider Appointments None ? ? recorded. Lab None ? ? recorded. Referral None ? ? recorded. Procedures None ? ? recorded. Surgeries None ? ? recorded. Imaging None ? ? recorded. Vitals 03/07/2021 09:00AM Office 15 Height Weight BMI 163.83 cm 74.84 kg 27.9 kg/m2 02/07/2021 08:30AM Office 15 Height Weight BMI Blood Pressure 163.83 cm 74.84 kg 27.9 kg/m2 138/82 mm[Hg] 09/05/2020 09:30AM Office 15 Height Weight BMI 163.83 cm 74.84 kg 27.9 kg/m2 11/04/2019 08:00AM Office 15 Height Weight BMI Blood Pressure 163.83 cm 75.57 kg 28.2 kg/m2 138/82 mm[Hg] 09/30/2019 08:00AM Office 15 Height Weight BMI Blood Pressure 163.83 cm 74.39 kg 27.7 kg/m2 152/88 mm[Hg] 04/15/2015 Height Weight Blood Pressure 167.64 cm 74.84 kg 144/82 mm[Hg] 05/06/2013 Height Weight 168.28 cm 79.56 kg 07/11/2011 Height Weight Blood Pressure 167.64 cm 72.57 kg 130/80 mm[Hg]
--- OUTSIDE RECORDS SUMMARY | 2021-04-25 13:35 | XMS_ITS | Encounter Summary ---
:1940 Author Care Team Providers Name Role Phone Stoney Atkinson MD Primary Care Provider [phone] Edi Yusuf General Surgeon [phone] Jacek Barcenas MD Urologist [phone] Zachery Stafford MD Neurologist [phone] Reason for Visit Post-op follow-up Assessment and Plan Assessment Note 80-year-old man postop from laparos copic ventral and bilateral inguinal hernias. He is doing well. No follow-up is necessary. I have encour aged him to perform full range of motion exercises including full stretching while avoiding anything strenuous or heavy lifting. He should continue doing that for the en tire month of March after which she can then resume regular activity as tolerated. No further follow-up is needed but he kn ows he can call me if he has any issues or questions. Discussion Note: None recorded.Patient educational handouts: No information available. Plan of Care Reminders Provider Appointments Return to on or around [facility] Office 08/01/2021 MD Paramjit Lab None ? ? recorded. Referral None [...] Administered None recorded. Vitals Height Weight BMI 5 ft 4.5 in 164 lbs 16 oz 27.9 kg/m2 Results Lab Results None recorded. Allergies Code Code System Name Reaction Severity Onset Adhesive Tape Other Mild ? 70689 RxNorm Azithromycin Nausea ? ? Penicillins Nausea ? ? 436277 RxNorm Scallops ? ? ? Problems Name [...] avai lable Notes: RIGHT WRIST FUSION--HAS DANIELLA CERVANTES 02/11/2010 Carpal Tunnel Surgery Information not av ailable Notes: right 02/11/2009 Ankle Surgery Information not avai lable Notes: RIGHT ankle fusion--has daniella cervantes 07/21/2008 Cystourethroscopy Rigid Information not available Notes: refractory right mid ureteral calculus ? Arthroplasty of Knee Information not seble ilable Notes: pt has had two left TKA Notes: Right ankle fusion right wrist fusion five previously fractured vetebrae Vaccine List Vaccine Type COVID-19, mRNA, LNP-S, PF, 30 mcg/0.3 mL dose (Tittat) 03/18/2020 04/06/2020 02/02/2021 Notes: Influenza vaccine season Social History Tobacco Smoking Status Never Smoker [...] Former Occupation construction, heavy equipment operation, business salesman/owner Which of your hands is Right dominant? [...] caffeine consumption? 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 ladder, reports conc ussion Family History Relation Problem Onset Age of Age Notes Unspecified Relation Malignant tumor of (No N/A ( No Notes) colon Information) Functional Status Unknown. Past Encounters 03/07/2021 Edi Yusuf MD: [address] [place] [address], Ph. 02/07/2021 Pre-surgery Testing Edi Yusuf MD: [address] [place] [address], Ph. History of Present Illness Note: <div>Doing well since surgery. He has some mild discomfort with certain movements but it is minimal and he says he is otherwise overall doing very well.</div><div>
</div><div>He is compliant using the abdominal binder.</div><div>
</div><div>He is able to go to the bathroom without difficulty. He is eating well.</div>Review of Systems: ROS as noted in the HPI Review of Systems None recorded. Physical Exam ? Notes: <div>General: Nontoxic and c omfortable

Neuro: Alert and oriented x3

Psych: Appropri ate mood and affect, good insight and understanding into condition </div><div>
</div><div>Abdomen: Soft, nondistended and nontender. His incisions are healing perfectly. No evidence of hernia recurrence in the groins or the umbilicus.</div><div>
</div><div>
</div>
--- OUTSIDE RECORDS SUMMARY | 2021-04-25 13:35 | XMS_ITS | CCD ---
:1940 Author Care Team Providers Name Role Phone Dalton WINCHESTER Attending Physician Unavailable Dalton WINCHESTER Rounding (Secondary) Physician Unavailab le Vital Signs Unknown or Not Available. Allergies Allergy Code Allergy Type Reaction Status PENICILLINS (CLASS) 0 Drug allergy Nausea; Hives Active SCALLOPS/ BURNING MOUTH 0 Drug allergy Acti ve {Clinical monitoring unavailable} TAPE 0 Allergy to substance RASH Active TAMSULOSIN 56936 Drug allergy BLURRED VISION Active APPLE 0 Food allergy STYE Active Procedures Unknown or Not Available. History of Immunizations Unknown or Not Available. 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 Active Medications Unknown or Not Available. Medications Administered During Visit Unknown or Not Available. Encounters Encounter Diagnosis Diagnosis Code Start Date Arthrodesis [id number] 01/31/2021 Social History Smoking Status Code Start Date End Date Never smoker [id number] Patient Decision Aids Unknown or Not Available. Discharge Instructions You were admitted to [facility] on 01/31/2021 10:00 with a principal diagnosis of Arthrodesis status You were discharged from [facility] on 01/31/2021 00:00 Should you have any questions prior to d ischarge, please contact a member of your healthcare team. If you have left the spital and have any questions, please contact your primary care physician. Chief Complaint and Reason For Visit Unknown or Not Available. Function Status Unknown or Not Available. Plan of Care Unknown or Not Available. Referral/Transition of Care Unknown or Not Available.
== END 2021-04-25 13:34 | disposition home or self-care (01) ==
LOC: DIORS 13:34
PROVIDERS: PCP Internal Medicine; Referring Provider Internal Medicine; Visit Provider Student in an Organized Health Care Education/Training Program
DX: M25.511 Pain in right shoulder (principal); M19.011 Primary osteoarthritis, right shoulder; S46.211A Strain of muscle, fascia and tendon of other parts of biceps, right arm, initial encounter; X50.0XXA Overexertion from strenuous movement or load, initial encounter
CPT/HCPCS: 99204; 73030

== ENCOUNTER 2021-05-08 01:11 | Outpatient (CLI) | payer MEDICARE, OTHER, SELFPAY ==
--- NOTE | 2021-05-08 07:58 | DI.MRI_ITS ---
Exam(s) MR UPPER JOINT RT WO EXAM: MR UPPER JOINT RT WO CLINICAL HISTORY: Traumatic shoulder pain, weakness,RUPTURE RT BICEPS TENDON,S46.011A,. TECHNIQUE: Multiplanar multisequence MRI was performed. COMPARISON: Plain films 25 April 2021 FINDINGS: BONES: There is no fracture or contusion pattern. Degenerative subchondral cysts near greater and les ser tuberosity. JOINTS: The acromioclavicular joint shows spurring and some fluid with apparent mild impingement on t he distal supraspinatus muscle tendon junction. Small amount of fluid is seen in the subacromial sub deltoid bursa.. TENDONS: Supraspinatus: High signal in the distal supraspinatus tendon without definite focal tear, likely ten dinitis. Infraspinatus: Unremarkable. Subscapularis: Unremarkable. Teres Minor: Unremarkable. Biceps and [place]: The long head of the biceps tendon is not seen proximally at the anchor or within the groove. It is visible in the inferior-most slices anterior to the humerus. MUSCLES: Unremarkable. No significant atrophy. GLENOID LABRUM: Degenerative changes of the visible focal tear. No glenohumeral joint effusion. SOFT TISSUES: Unremarkable. LIGAMENTS: Unremarkable. IMPRESSION: Full-thickness tear and retraction of the biceps tendon. Degenerative changes of the AC joint. Supraspinatus tendonitis. DATA REPOSITORY:
== END 2021-05-08 01:31 ==
PROVIDERS: PCP Internal Medicine; Visit Provider Student in an Organized Health Care Education/Training Program
DX: M25.511 Pain in right shoulder (principal); S46.211A Strain of muscle, fascia and tendon of other parts of biceps, right arm, initial encounter; M75.81 Other shoulder lesions, right shoulder; M19.011 Primary osteoarthritis, right shoulder
CPT/HCPCS: 73221

== ENCOUNTER → 2021-05-17 08:55 | Outpatient (BNVA) | payer MEDICARE, OTHER, SELFPAY | PROVIDERS: PCP Internal Medicine; Referring Provider Internal Medicine; Visit Provider Student in an Organized Health Care Education/Training Program | DX: S46.211A Strain of muscle, fascia and tendon of other parts of biceps, right arm, initial encounter (principal); X58.XXXA Exposure to other specified factors, initial encounter; M75.51 Bursitis of right shoulder | CPT/HCPCS: 99214 ==

== ENCOUNTER 2021-09-07 22:11 | Outpatient (REF) | payer MEDICARE, OTHER, SELFPAY ==
[2021-09-07 21:18] LABS: Anion Gap 7.2 mmol/L (3-11); BUN 20 mg/dL (7-18); CO2 24.8 mmol/L (21.0-32.0); CREATININE 0.9 mg/dL (0.70-1.30); Calcium 8.9 mg/dL (8.5-10.1); Chloride 105 mmol/L (98-107); Glucose 85 mg/dL (74-106); Potassium 4.2 mmol/L (3.5-5.1); Sodium 137 mmol/L (136-145)
== END 2021-09-07 22:12 | disposition home or self-care (01) ==
LOC: NCHCN 22:11
PROVIDERS: PCP Internal Medicine; Visit Provider Physician Assistant
DX: I10 Essential (primary) hypertension (principal)
CPT/HCPCS: 80048

== ENCOUNTER 2022-05-09 16:47 | Outpatient (REF) | payer MEDICARE, OTHER, SELFPAY ==
[2022-05-10 13:30] LABS: Troponin I < 50 ng/L (<or=60)
== END 2022-05-09 16:48 | disposition home or self-care (01) ==
LOC: NCHCN 16:47
PROVIDERS: PCP Internal Medicine; Visit Provider Nurse Practitioner Family
DX: I10 Essential (primary) hypertension (principal); R53.1 Weakness
CPT/HCPCS: 84484

== ENCOUNTER 2022-10-18 19:07 | Outpatient (REF) | payer MEDICARE, OTHER, SELFPAY ==
[2022-10-18 19:39] LABS: ALT 20 U/L (16-63); AST 18 U/L (15-37); Albumin 3.7 g/dL (3.4-5.0); Alkaline Phosphatase 86 U/L (46-116); Anion Gap 9.3 mmol/L (3-11); BUN 27 mg/dL (7-18); Bilirubin, Total 1.8 mg/dL (0.2-1.0); CO2 25.7 mmol/L (21.0-32.0); Calcium 8.9 mg/dL (8.5-10.1); Chloride 106 mmol/L (98-107); Estimated GFR 75.61 (mL/min/1.73m2); Glucose 131 mg/dL (74-106); Potassium 3.9 mmol/L (3.5-5.1); Sodium 141 mmol/L (136-145); Total Protein 6.8 g/dL (6.4-8.2)
== END 2022-10-18 19:08 | disposition home or self-care (01) ==
LOC: NCHCN 19:07
PROVIDERS: PCP Internal Medicine; Visit Provider Physician Assistant
DX: I10 Essential (primary) hypertension (principal)
CPT/HCPCS: 80053

== ENCOUNTER 2023-05-17 18:45 | Outpatient (REF) | payer MEDICARE, OTHER, SELFPAY ==
[2023-05-17 19:52] LABS: TSH (W/Ref FT4) 0.97 uIU/mL (0.36-3.74); Vitamin B12 272 pg/mL (193-986)
[2023-05-17 19:57] LABS: Folate > 20.0 ng/mL (8.6-20.0)
== END 2023-05-17 18:46 | disposition home or self-care (01) ==
LOC: NCHCN 18:45
PROVIDERS: PCP Internal Medicine; Visit Provider Physician Assistant
DX: D75.89 Other specified diseases of blood and blood-forming organs (principal)
CPT/HCPCS: 82607; 82746; 84443

== ENCOUNTER 2024-04-02 12:35 | Outpatient (REF) | payer MEDICARE, SELFPAY ==
[2024-04-02 19:09] LABS: Abs Immature Grans 0.02 10^3/uL (0.0-0.06); Absolute Basophil Count 0.05 10^3/uL (0.0-0.2); Absolute Eosinophil Count 0.14 10^3/uL (0.0-0.7); Absolute Lymphocyte Count 1.48 10^3/uL (1.2-3.4); Absolute Monocyte Count 0.56 10^3/uL (0.1-0.8); Absolute Neutrophil Count 4.01 10^3/uL (1.2-6.7); Basophils % 0.8 %; Eosinophils % 2.2 %; HCT 46.8 % (40.0-50.0); HGB 15.9 g/dL (13.5-17.5); Immature Grans % 0.3 %; Lymphocytes % 23.6 %; MCH 32.9 pg (27.0-33.0); MCV 97 fL (80-95); MPV 11.2 fL (8.0-11.0); Monocytes % 8.9 %; Neutrophils % 64.2 %; Platelet Count 198 10^3/uL (130-400); RBC 4.84 10^6/uL (4.36-5.78); RDW-SD 42.9 fL; WBC 6.26 10^3/uL (4.4-10.8)
[2024-04-02 19:54] LABS: ALT 16 U/L (16-63); AST 15 U/L (15-37); Albumin 3.8 g/dL (3.4-5.0); Alkaline Phosphatase 77 U/L (46-116); Anion Gap 4.4 mmol/L (3-11); BUN 19 mg/dL (7-18); Bilirubin, Total 1.35 mg/dL (0.2-1.0); CO2 31.6 mmol/L (21.0-32.0); CREATININE 1.1 mg/dL (0.70-1.30); Calcium 9.1 mg/dL (8.5-10.1); Chloride 108 mmol/L (98-107); Cholesterol 210 mg/dL (<200); Estimated GFR 67.02 (mL/min/1.73m2); Glucose 87 mg/dL (74-106); HDL Cholesterol 79 mg/dL (40-60); Potassium 4.8 mmol/L (3.5-5.1); Sodium 144 mmol/L (136-145); Total Protein 7.1 g/dL (6.4-8.2); Vitamin B12 1153 pg/mL (193-986)
[2024-04-02 20:04] LABS: Calculated LDL 125 mg/dL (<100); Triglyceride 33 mg/dL (<150)
[2024-04-03 12:50] LABS: TSH 1.58 uIU/mL (0.36-3.74)
[2024-04-03 19:29] LABS: PSA, Screening 1.1 ng/mL (<=6.5)
== END 2024-04-02 12:36 | disposition home or self-care (01) ==
LOC: NCHCN 12:35
PROVIDERS: PCP Internal Medicine; Visit Provider Physician Assistant
DX: I10 Essential (primary) hypertension (principal); Z12.5 Encounter for screening for malignant neoplasm of prostate; R41.3 Other amnesia; E53.8 Deficiency of other specified B group vitamins
CPT/HCPCS: 80053; 80061; 84153; 82607; 84443; 85025

== ENCOUNTER 2024-06-11 02:00 | Outpatient (CLI) | payer MEDICARE, OTHER, SELFPAY ==
--- NOTE | 2024-06-11 10:32 | DI.RAD_ITS ---
Exam(s) XR ANKLE RT COMPLETE XR FOOT RT COMPLETE EXAM: XR FOOT RT COMPLETE and XR ankle RT complete CLINICAL HISTORY: Right foot pain,M79.671. TECHNIQUE: 2D digital imaging was performed of the right ankle and foot. Seven images were obtained . AP, oblique and lateral views were obtained. COMPARISON: There are no priors for comparison. FINDINGS: BONES: No acute fracture is present. No bony destructive lesion is seen. JOINTS: No dislocation present. There are postsurgical changes of a right ankle arthrodesis. The ort hopedic hardware appears unremarkable. No lucencies are seen about the hardware. There are mild deg enerative changes seen in the foot particularly at the 1st MTP joint and the PIP joint of the 2nd toe . SOFT TISSUE: Normal. IMPRESSION: 1. Old right ankle joint effusion. 2. Mild degenerative changes of the foot. 3. No acute abnormality. DATA REPOSITORY: RADIATION DOSE DELIVERED:
== END 2024-06-11 02:20 ==
PROVIDERS: PCP Physician Assistant; Visit Provider Podiatrist
DX: M25.571 Pain in right ankle and joints of right foot; M19.071 Primary osteoarthritis, right ankle and foot
CPT/HCPCS: 99204; 73610; 73630